=== PATIENT | female | born 1990 | race Caucasian/White ===

== ENCOUNTER 2019-01-11 11:22 | Day surgery (SDC) | payer OTHER, MEDICAID ==
[~2019-01-11 11:22] MED LIST: GLYCOPYRROLATE 0.4 MG INJ; LIDOCAINE 2% (SDV) 5 ML INJ; PROPOFOL 200 MG INJ; ROCURONIUM 50 MG INJ; SEVOFLURANE 15 MIN
[2019-01-11] MEDS ORDERED: BUPIVACAINE 0.5% (SDV) 30 ML INJ (11:48)
[2019-01-11] MEDS ORDERED: MIDAZOLAM 1 MG/ML 2 ML INJ (11:50)
[2019-01-11] MEDS ORDERED: LIDOCAINE 2%/EPI 30 ML INJ (11:53)
[2019-01-11] MEDS ORDERED: ONDANSETRON 4 MG INJ (14:42)
[2019-01-11] MEDS ORDERED: DEXAMETHASONE 4 MG/ML 5 ML INJ (14:42)
[2019-01-11] MEDS: BACITRACIN/POLYMYXIN 28.35 GM OINT TOP (15:10)
[2019-01-11] MEDS: POLYMYXIN/BACITRACIN 1L IRRIG (15:11)
[2019-01-11] MEDS: THROMBIN (BOVINE) 5,000 UNIT VIAL TP (15:11)
[2019-01-11] MEDS: CA CHLORIDE 10% 10 ML SYRINGE (15:11)
[2019-01-11] MEDS ORDERED: GLYCOPYRROLATE 0.4 MG INJ (16:25)
[2019-01-11] MEDS ORDERED: NEOSTIGMINE 3 MG/3 ML SYRINGE (16:25)
[2019-01-11] MEDS ORDERED: EPHEDrine SULFATE 50 MG/5 ML SYG IV (17:00)
[2019-01-11] MEDS ORDERED: HYDROmorphONE 1 MG/5 ML IV SYRINGE IV ×2 (17:00)
[2019-01-11] MEDS ORDERED: DIPHENHYDRAMINE 50 MG INJ IV (17:00)
[2019-01-11] MEDS ORDERED: hydrALAzine 20 MG INJ IV (17:00)
[2019-01-11] MEDS ORDERED: OXYCODONE/ACETAMINOPHEN (5/325) TAB PO ×2 (17:00)
[2019-01-11] MEDS ORDERED: METOCLOPRAMIDE 10 MG INJ IV (17:00)
[2019-01-11] MEDS ORDERED: MIDAZOLAM 1 MG/ML 2 ML INJ IV (17:00)
[2019-01-11] MEDS ORDERED: FENTAnyl 50 MCG/ML VIAL IV ×3 (17:00)
[2019-01-11] MEDS ORDERED: KETOROLAC 30 MG INJ IV (17:00)
[2019-01-11] MEDS ORDERED: LABETALOL HCL 20MG INJ IV (17:00)
[2019-01-11] MEDS ORDERED: ALBUTEROL 0.083% (NEB) 2.5 MG/3 ML AMP HHN (17:00)
[2019-01-11] MEDS ORDERED: MEPERIDINE 25 MG INJ IV (17:00)
[2019-01-11] MEDS: HYDROmorphONE 1 MG/5 ML IV SYRINGE IV (17:06)
[2019-01-11] MEDS: ONDANSETRON 4 MG INJ IV (17:24)
[2019-01-11] MEDS ORDERED: morphine 2 MG INJ IV (17:30)
== END 2019-01-11 18:55 | disposition home or self-care (01) ==
LOC: SDS 11:22
DX: M25.372 Other instability, left ankle (principal); M65.872 Other synovitis and tenosynovitis, left ankle and foot; M25.872 Other specified joint disorders, left ankle and foot
CPT/HCPCS: 27695; 73610; 82306